=== PATIENT | male | born 1990 | race African-American/Black ===

== ENCOUNTER 2020-04-16 14:31 | Emergency (ER) | payer SELFPAY ==
[2020-04-16 14:42] VITALS: BP 138/73; PULSE 70; RESP 14; TEMP 36.6; O2SAT 100
--- NOTE | 2020-04-16 14:44 | ED.GENADUL_ITS ---
Discharge Plan Disposition Patient Disposition: HOME Condition: Stable Discharge Details Clinical Impression: Screen for STD (sexually transmitted disease) Primary Care Provider: Riley Manzo ED Provider: Jimena Galarza Discharge Instructions Instructions: Sexually Transmitted Diseases (ED) Additional Instructions: Cultures will come back within 48 to 72 hours. You were treated today for possible STD. You were given Rocephin IM and azithromycin 1 g. Follow up with primary care provider in 3-5 days. Return to ED sooner if any worsening or concerns. Increase oral fluids. Please take Tylenol or Ibuprofen with food every 4-6 hours as needed for pain and swelling. Please return to the ED for any worsening symptoms or concerns. Referrals: Riley Manzo [Primary Care Provider] - Discharge Data Discharge Date/Time-TO BE ENTERED AT DEPARTURE: 04/16/20 15:20 Medical Decision Making Patient was given 1 g of azithromycin and 250 mg ceftriaxone IM to treat e mpirically for exposure to gonorrhea and chlamydia. At this time urine culture is pending. Discussed pelvic rest with patient, verbalized understanding. HPI General Mode of arrival: ambulatory . Date/Time Provider Initiated Documentation: 04/16/20 14:41 . Limitations to Documentation: no limitations . Information obtained by: patient . HPI Narrative: 29-year-old male presents to the ED for possible exposure to STD. He reports that he had sexual intercourse with another person who was tested positive for either gonorrhea or chlamydia. He denies any symptoms such as penile discharge or lesions. He is requesting treatment at this time. Urine sent for gonorrhea chlamydia. General Stated Complaint: GenMedical JESSICA: 4 Review of Systems Narrative: Constitutional: Negative for weight loss, alert and oriented, well groomed, normal body habitus, appears comfortable. HEENT: Denies trauma, headaches, blurry vision, nasal discharge, sore throat, trouble swallowing. Chest: Denies chest pain, palpitations, irregular rhythm, hypertension. Respiratory: Denies Shortness of breath, cough, hemoptysis. GI: Denies abdominal pain, nausea, vomiting, diarrhea, constipation. : Denies dysuria, hematuria, flank pain, rectal bleeding. Neuro: Denies dizziness, blurry vision, weakness, syncope, headache or facial numbness. Hematologic: Denies easy bruising, intolerance to heat or cold, hair loss. PFSH Social History Smoking/Tobacco Use Status: Never Alcohol Intake: current Substance use type: does not use Do you feel safe at home: Yes Do you feel safe in your relationship?: Yes Exam Narrative Exam Narrative: Constitutional: Alert and oriented x3. Appears stated age. Normal body habitus. Head: Normocephalic, no trauma. Eyes: Pupils PERRLA, Red reflex noted, EOM's intact. Eyelids symmetrical without lesions, discharge, or swelling. ENT: Bilateral TM's WNL, External ear normal to inspection, no mastoid TTP, swelling, or erythema, Nasal turbinates WNL, no nasal discharge. Normal dentition, Posterior pharynx WNL, no exudate. Chest: RRR, Normal S1, S2, distal pulses intact. Resp: Lungs clear to auscultation bilaterally, no wheezes, rales, or rhonchi. Musculoskeletal: Normal gait, 5/5 strength to all four extremities. Skin: No suspicious rashes or lesions. Capillary refill less than 2 sec. Neurologic: Cranial nerves II-XII intact. Alert and oriented x 3. DTR's intact. Hematologic/Lymphatic: No ecchymosis, no lymphadenopathy. Course Vital Signs Vital signs: Vital Signs Temperature 36.6 C 04/16/20 14:42 Pulse 70 04/16/20 14:42 Respiratory Rate 14 04/16/20 14:42 Blood Pressure 138/73 04/16/20 14:42 Pulse Oximetry 100 04/16/20 14:42 Temperature 36.6 C 04/16/20 14:42 Temperature Source Skin 04/16/20 14:42 Pulse 70 04/16/20 14:42 Respiratory Rate 14 04/16/20 14:42 Blood Pressure 138/73 04/16/20 14:42 Blood Pressure Position Sitting 04/16/20 14:42 Pulse Oximetry 100 04/16/20 14:42 Oxygen Delivery Method Room Air 04/16/20 14:42 Oxygen Flow Rate 0 04/16/20 14:42 Pain Level 0 04/16/20 14:42
[2020-04-16] MEDS: cefTRIAXone 250 MG VIAL IM (15:06)
[2020-04-16] MEDS: Azithromycin 250 MG TAB 1000 MG PO (15:06)
--- NOTE | 2020-04-16 20:03 | NUR.NOTE ---
Referral to care management to establish pcpNursing Note:
--- NOTE | 2020-04-17 14:45 | CMPROGNOTE_ITS ---
- If Service Date Differs Date of service: 04/17/20 Time of Service: 14:45 Care Management Progress Note At the request of ED provider, CM coordinates a referral to Yamilet Pretty MD, on- call provider, of [facility], to assist Yoshi in obtaining a follow-up appointment and in establishing care with a PCP. Yoshi' former PCP is Riley Manzo MD, of [facility]. A referral is also made to the manager community development at [facility], as Joanie newman appears to be without health insurance.
--- NOTE | 2020-04-17 14:45 | PDOC.ERCMPRO ---
- If Service Date Differs Date of service: 04/17/20 Time of Service: 14:45 Care Management Progress Note At the request of ED provider, BRIANNA coordinates a referral to Yamilet Pretty MD, on-call provider, of [facility], to assist Yoshi in obtaining a follow-up appointment and in establishing care with a PCP. Yoshi' former PCP is Riley Manzo MD, of [facility]. A referral is also made to the community development specialist at [facility], as Yoshi appears to be without health insurance.
[2020-04-17 15:14] LABS: Chlamydia Result Negative (Negative); GC Result Negative (Negative)
== END 2020-04-16 15:20 | disposition home or self-care (01) ==
PROVIDERS: Emergency Provider Registered Nurse Emergency; PCP Pediatrics
DX: Z20.2 Contact with and (suspected) exposure to infections with a predominantly sexual mode of transmission (principal); Z77.21 Contact with and (suspected) exposure to potentially hazardous body fluids
CPT/HCPCS: 87491; 87591; 96372; 99284; 99283; J0696

== ENCOUNTER 2021-02-01 18:52 | Outpatient (REF) | payer BC, SELFPAY ==
[2021-02-03 10:59] LABS: Syphilis Serology (RPR) Negative (Negative)
[2021-02-03 12:08] LABS: Hepatitis C Ab w Rflx HCV PCR Negative (Negative)
[2021-02-03 12:29] LABS: HIV-1/2 Ag & Ab Screen Negative (Negative)
[2021-02-03 13:39] LABS: Chlamydia Result Negative (Negative); GC Result Negative (Negative)
== END 2021-02-01 18:53 | disposition home or self-care (01) ==
LOC: NCHCN 18:52
PROVIDERS: PCP Physician Assistant; Visit Provider Physician Assistant
DX: Z11.3 Encounter for screening for infections with a predominantly sexual mode of transmission (principal)
CPT/HCPCS: 86803; 87389; 87491; 87591; 86592